=== PATIENT | male | born 1975 ===

== ENCOUNTER 2017-07-19 14:12 | Emergency (ER) | payer MEDICARE, OTHER ==
[2017-07-19 14:16] VITALS: BMI 23.6
[2017-07-19 14:20] VITALS: RESP 18; O2SAT 100
--- NOTE | 2017-07-19 16:06 | C.PDOC ---
History Of Present Illness 41 year old male presents to the ED to be evaluated. The patient reports that this morning while shoveling fell injuring the left side of the ribs, left shoulder and lower back. The patient reports that the pain is exacerbated by movement an deep inspiration. Denies shortness of breath, hemoptysis, abdominal pain, head trauma, neck pain. Time Seen by Provider: 07/19/17 14:25 Chief Complaint (Nursing): Upper Extremity Problem/Injury History Per: Patient History/Exam Limitations: no limitations Onset/Duration Of Symptoms: Hrs Current Symptoms Are (Timing): Still Present Quality: "Pain" Exacerbating Factor(s): Movement, Other (deep inspiration) Recent travel outside of the [place]: No Past Medical History Reviewed: Historical Data, Nursing Documentation, Vital Signs Vital Signs: Last Vital Signs Temp 98.8 F 07/19/17 16:56 Pulse 58 L 07/19/17 16:56 Resp 18 07/19/17 16:56 BP 137/92 H 07/19/17 16:56 Pulse Ox 100 07/19/17 18:45 - Medical History PMH: Arthritis, Asthma, Back Problems, Bipolar Disorder Surgical History: Back Surgery Family History: States: Unknown Family Hx - Social History Hx Tobacco Use: Yes (Heavy Smoker > 10 Cigarettes Daily) Hx Alcohol Use: No Hx Substance Use: No - Immunization History Hx Tetanus Toxoid Vaccination: No Hx Influenza Vaccination: No Hx Pneumococcal Vaccination: No Review Of Systems Except As Marked, All Systems Reviewed And Found Negative. Respiratory: Negative for: Shortness of Breath, Hemoptysis Gastrointestinal: Negative for: Abdominal Pain Musculoskeletal: Positive for: Shoulder Pain (left shoulder), Back Pain (lower back), Other (Left rib pain). Negative for: Neck Pain Physical Exam - Physical Exam Appears: Non-toxic, No Acute Distress Skin: Normal Color, Warm, Dry, No Rash Head: Atraumatic, Normacephalic, No Tenderness Eye(s): bilateral: Normal Inspection, PERRL, EOMI Ear(s): Bilateral: Normal Nose: Normal Oral Mucosa: Moist Tongue: Normal Appearing Lips: Normal Appearing Teeth: Normal Dentition Gingiva: Normal Appearing Neck: Normal, Normal ROM, No Step Off Deformity, Supple Chest: Symmetrical, No Deformity, No Tenderness Cardiovascular: Rhythm Regular, No Murmur Respiratory: Normal Breath Sounds, No Rales, No Rhonchi, No Wheezing Gastrointestinal/Abdominal: Normal Exam, Bowel Sounds, Soft, No Tenderness, No Guarding, Other (left anterior rib tenderness around 9th and 10th rib) Extremity: Normal ROM (normal ROM of left shoulder), Tenderness (tenderness to left lateral shoulder.), No Deformity, No Swelling Extremity: Bilateral: Atraumatic Neurological/Psych: Oriented x3, Normal Speech, Normal Cognition, Normal Motor Gait: Steady ED Course And Treatment ECG: Interpreted By Me ECG Rhythm: Sinus Rhythm ECG Interpretation: Normal Rate From EC O2 Sat by Pulse Oximetry: 100 (RA) Pulse Ox Interpretation: Normal - Other Rad X-Ray - Ribs & Chest X-Ray: Viewed By Me, Read By Radiologist Interpretation: PROCEDURE: Radiographs of the Chest and Left Ribs. HISTORY: rib injury and pain to the 8-10th anterior L ribs. COMPARISON: None available. TECHNIQUE: Frontal radiograph of the chest and multiple oblique radiographs of the left ribs were obtained. FINDINGS: LEFT RIBS: No acute displaced fracture or focal lesion visualized. Bone alignment and mineralization are normal. LUNGS: The lungs are well inflated and clear. PLEURA: No pneumothorax or pleural fluid. CARDIOVASCULAR: Normal sized heart. No pulmonary vascular congestion. OTHER FINDINGS: None. IMPRESSION: No acute displaced rib fracture. Clear lungs. X-Ray - Left Shoulder X-Ray: Viewed By Me, Read By Radiologist Interpretation: PROCEDURE: Radiographs of the Left Shoulder. HISTORY: shoulder injury. COMPARISON: No prior. FINDINGS: BONES: Bone alignment and mineralization are normal. There is no acute displaced fracture or bone destruction. JOINTS: There is severe degenerative osteoarthrosis in the glenohumeral joint with reduced joint space, marginal osteophytes and presumable loose bodies. The acromioclavicular joint is normal. SOFT TISSUES: Normal. OTHER FINDINGS: None. IMPRESSION: No acute fracture or dislocation. X-Ray - Lumbar Spine X-Ray: Viewed By Me, Read By Radiologist Interpretation: PROCEDURE: Radiographs of the Lumbar Spine. HISTORY: low back pain, spinal fushion. COMPARISON: No prior. FINDINGS: BONES: There is mild levocurvature in the lumbar spine. There is normal alignment of the lumbar vertebral bodies. There is normal lumbar lordosis. Status post posterior spinal fusion and fixation at L4 and L5 with a disc graft at L4-5. No radiographic evidence for loosening or screw fracture. DISC SPACES: There is mild degenerative disc disease at L3-4 and L5-S1. OTHER FINDINGS: There are no pathologic soft tissue calcifications. Both sacroiliac joints are normal the. IMPRESSION: No acute fracture. Status post posterior spinal fixation with transpedicular screws at L4 and L5 and disc graft at L4-5. No hardware complications. Medical Decision Making Medical Decision Making: On re-exam, the patient reports improvement of symtoms. Ambulatory in the ED with steady gait. Lungs are CTA, heart is RRR, abdomen is soft, non-tender and tolerating PO well. Follow up with the medical doctor within 1-2 days. Return if worsened. Disposition - Disposition Referrals: [facility] [Outside] Disposition: HOME/ ROUTINE Disposition Time: 16:38 Condition: FAIR Additional Instructions: Follow up with the medical doctor within 1-2 days. Return if worsened. Prescriptions: Ibuprofen [Motrin] 600 mg PO TID #21 tab traMADol [Ultram] 50 mg PO Q6 PRN #20 tab PRN Reason: Pain Instructions: Rib Contusion (ED) Forms: [facility] (Maltese), Work Excuse - Clinical Impression Clinical Impression: Rib contusion, Shoulder sprain, Low back pain
--- NOTE | 2017-07-19 16:16 | RAD ---
PROCEDURE: Radiographs of the Left Shoulder HISTORY: shoulder injury COMPARISON: No prior. FINDINGS: BONES: Bone alignment and mineralization are normal. There is no acute displaced fracture or bone destruction. JOINTS: There is severe degenerative osteoarthrosis in the glenohumeral joint with reduced joint space, marginal osteophytes and presumable loose bodies. The acromioclavicular joint is normal. SOFT TISSUES: Normal. OTHER FINDINGS: None. IMPRESSION: No acute fracture or dislocation.
--- NOTE | 2017-07-19 16:18 | RAD ---
PROCEDURE: Radiographs of the Lumbar Spine. HISTORY: low back pain, spinal fushion COMPARISON: No prior. FINDINGS: BONES: There is mild levocurvature in the lumbar spine. There is normal alignment of the lumbar vertebral bodies. There is normal lumbar lordosis. Status post posterior spinal fusion and fixation at L4 and L5 with a disc graft at L4-5. No radiographic evidence for loosening or screw fracture. DISC SPACES: There is mild degenerative disc disease at L3-4 and L5-S1. OTHER FINDINGS: There are no pathologic soft tissue calcifications. Both sacroiliac joints are normal the IMPRESSION: No acute fracture. Status post posterior spinal fixation with transpedicular screws at L4 and L5 and disc graft at L4-5. No hardware complications.
--- NOTE | 2017-07-19 16:19 | RAD ---
PROCEDURE: Radiographs of the Chest and Left Ribs. HISTORY: rib injury and pain to the 8-10th anterior L ribs COMPARISON: None available. TECHNIQUE: Frontal radiograph of the chest and multiple oblique radiographs of the left ribs were obtained. FINDINGS: LEFT RIBS: No acute displaced fracture or focal lesion visualized. Bone alignment and mineralization are normal. LUNGS: The lungs are well inflated and clear. PLEURA: No pneumothorax or pleural fluid. CARDIOVASCULAR: Normal sized heart. No pulmonary vascular congestion. OTHER FINDINGS: None. IMPRESSION: No acute displaced rib fracture. Clear lungs.
[2017-07-19 16:56] VITALS: BP 137/92; PULSE 58; TEMP 98.8
== END 2017-07-19 16:56 | disposition home or self-care (01) ==
LOC: C.ER 14:12
DX: S20.212A Contusion of left front wall of thorax, initial encounter (principal); S43.402A Unspecified sprain of left shoulder joint, initial encounter; W01.0XXA Fall on same level from slipping, tripping and stumbling without subsequent striking against object, initial encounter; Y93.H1 Activity, digging, shoveling and raking; Y92.89 Other specified places as the place of occurrence of the external cause; M54.5 Low back pain
CPT/HCPCS: 71101; 72100; 73030; 96372; 99284; J1885